=== PATIENT | male | born 1995 | race Hispanic/Latino ===

== ENCOUNTER 2018-05-31 12:25 | Emergency (ER) | payer OTHER ==
[~2018-05-31] VITALS: Ht 170.2 cm; Wt 90.7 kg
[2018-05-31] MEDS ORDERED: SODIUM CHLORIDE 0.9% 1000ML 1,000 ML IV ONE (12:56)
[2018-05-31] MEDS ORDERED: ONDANSETRON HCL 4 MG/2 ML VIAL ONE (12:56)
[2018-05-31 13:01] LABS: BASOPHILS % (AUTO) 0.4 % (0.0-5.0); HEMATOCRIT 44.8 % (42-54); LYMPHOCYTES % (AUTO) 11.7 % (21.0-51.0); MEAN CORPUSCULAR HGB CONC 35.1 g/dL (32.0-36.0); MEAN CORPUSCULAR VOLUME 88.3 fL (79-99); NEUTROPHILS % (AUTO) 81.9 % (40.0-77.0); PLATELET COUNT (AUTO) 149 K/uL (130-400); RED BLOOD CELL COUNT(AUTO) 5.07 MIL/uL (4.50-6.20); RED CELL DISTRIBUTION WIDTH 13.3 % (11.0-15.5); WHITE BLOOD COUNT (AUTO) 10.2 K/uL (4.8-10.8)
[2018-05-31 13:12] LABS: CREATININE 0.9 mg/dL (0.5-1.5); POTASSIUM 3.7 mmol/L (3.5-5.1)
[2018-05-31 13:17] LABS: ALBUMIN 3.8 g/dL (3.5-5.0); BILIRUBIN,TOTAL 0.7 mg/dL (0.2-1.0); TOTAL PROTEIN, SERUM 7.2 g/dL (6.0-8.3)
[2018-05-31] MEDS ORDERED: LEVOFLOXACIN 500 MG/D5W 100 ML 100 ML IV SCH (15:15)
[2018-05-31] MEDS ORDERED: METHYLPREDNISOLONE SOD SUCC 125MG/2ML VIAL IVP SCH (15:15)
[2018-05-31] MEDS ORDERED: IPRATROPIUM/ALBUTEROL SULFATE 3 ML SOLUTION IH SCH (18:00)
== END 2018-05-31 14:19 | disposition home or self-care (01) ==
LOC: EDH 12:25
DX: A08.4 Viral intestinal infection, unspecified (principal); R50.81 Fever presenting with conditions classified elsewhere; E86.0 Dehydration; J45.909 Unspecified asthma, uncomplicated; Z72.0 Tobacco use
CPT/HCPCS: 36415; 80053; 85025; 96361; 96374; 99284; J2405; J7030

== ENCOUNTER 2018-06-01 19:03 | Emergency (ER) | payer OTHER ==
[2018-06-01] MEDS ORDERED: SIMETHICONE 80 MG TAB.CHEW ONE (19:35)
[2018-06-01] MEDS ORDERED: ACETAMINOPHEN EXTRA STRENGTH 500 MG TABLET ONE (19:35)
[2018-06-01] MEDS ORDERED: HYOSCYAMINE SULFATE 0.125 MG TAB.SUBL SL ONE (19:35)
[2018-06-01 20:13] LABS: BASOPHILS % (AUTO) 0.6 % (0.0-5.0); EOSINOPHILS % (AUTO) 2.7 % (0.0-8.0); LYMPHOCYTES % (AUTO) 29.3 % (21.0-51.0); MEAN CORPUSCULAR HEMOGLOBIN 30.8 pg (27.0-33.0); MEAN CORPUSCULAR HGB CONC 34.9 g/dL (32.0-36.0); MEAN CORPUSCULAR VOLUME 88.2 fL (79-99); MONOCYTES % (AUTO) 11.7 % (3.0-13.0); NEUTROPHILS % (AUTO) 55.7 % (40.0-77.0); PLATELET COUNT (AUTO) 174 K/uL (130-400); RED BLOOD CELL COUNT(AUTO) 4.87 MIL/uL (4.50-6.20); RED CELL DISTRIBUTION WIDTH 13.2 % (11.0-15.5); WHITE BLOOD COUNT (AUTO) 6.4 K/uL (4.8-10.8)
[2018-06-01 20:26] LABS: CREATININE 0.8 mg/dL (0.5-1.5); POTASSIUM 3.6 mmol/L (3.5-5.1)
[2018-06-01 20:30] LABS: ALBUMIN 3.3 g/dL (3.5-5.0); BILIRUBIN,TOTAL 0.4 mg/dL (0.2-1.0); TOTAL PROTEIN, SERUM 6.8 g/dL (6.0-8.3)
== END 2018-06-01 20:50 | disposition home or self-care (01) ==
LOC: EDH 19:03
DX: R19.7 Diarrhea, unspecified (principal); R10.9 Unspecified abdominal pain; J45.909 Unspecified asthma, uncomplicated; F17.200 Nicotine dependence, unspecified, uncomplicated
CPT/HCPCS: 36415; 80053; 83690; 85025